=== PATIENT | male | born 1945 | race Caucasian/White ===

== ENCOUNTER 2018-07-31 19:29 | Emergency (ER) | payer OTHER ==
[~2018-07-31] VITALS: Ht 172.7 cm; Wt 72.6 kg
[~2018-07-31 19:29] MED LIST: ALBUTEROL INH IH; B-121000 MCG PO; CALCIUM PO; CARAFATE 1 GM TA1 GM PO; CARDURA1 MG; CARDURA4 MG PO; CELEXA40 MG PO; CHANTIX1 MG; CLONIDINE HCL0.2 M2 PO; DESYREL100 MG PO; DESYREL50 MG; FOLIC ACID 40400 MC1 PO; HYDROCODON-ACE1 EAC1 PO; IRON325; IRON325 PO; LEVAQUIN 500 M500 M2 PO; LEVAQUIN 750 M750 MG PO; LIBRIUM10 MG PO; LISINOPRIL40 MG PO; MAG-OX 400 TAB400 M1 PO; METAMUCIL PAC1 UDPK1 PO; METAMUCIL PAC1 UDPKT PO; MUCINEX TA600 MG/TA1 PO; MULTIVITAMINS PO; NEURONTIN 300M300 M2 PO; NORVASC 5 MG TAB5 MG PO; OCEAN45 ML OPHTHALMIC; PREDNISONE 10 M10 MG PO; PREDNISONE10 MG PO; PROTONIX 20 MG20 M1 PO; SIMVASTATIN40 MG; SPIRIVA INH; TAMSULOSIN HCL0.4 MG PO; TRAZODONE HCL100 MG PO; TUMS PO; VENTOLIN HFA INH8 GM INH; VITAMIN B-12500 MCG; VITAMIN D1000 UNI1 PO; VITAMINC500 PO; WELLBUTRIN XL150 M1
[2018-07-31] MEDS ORDERED: STIOLTO RESPIMAT4 GM (19:58)
[2018-07-31 20:26] LABS: ABSOLUTE BASOPHILS 0.1 thou/uL (0.0-0.2); ABSOLUTE EOSINOPHILS 0.1 thou/uL (0.0-0.7); ABSOLUTE LYMPHOCYTES 1.1 thou/uL (0.8-5.3); ABSOLUTE MONOCYTES 0.8 thou/uL (0.0-1.2); BASOPHILS 0.8 %; EOSINOPHILS 1.3 %; HEMOGLOBIN 12.8 gm/dL (14.0-18.0); LYMPHOCYTES 13.8 %; MCH 30.1 pg (26.0-34.0); MCHC 32.7 g/dL (28.0-37.0); MCV 92.1 fL (80.0-100.0); MONOCYTES 9.8 %; MPV 9.3 fl. (7.2-11.1); NUCLEATED RBCS 0 /100WBC; PLATELET COUNT* 203 thou/uL (150-400); POLYS 74.3 %; RBC 4.23 mil/uL (4.50-6.00); RDW-CV 12.6 % (10.5-14.5); WBC 8.1 thou/uL (4.0-11.0)
[2018-07-31 20:36] LABS: PROTIME 10.4 Seconds (9.20-11.50)
[2018-07-31 20:41] LABS: ANION GAP 3 mmol/L (7-16); BUN 7 mg/dL (7-18); CALCIUM 8.3 mg/dL (8.5-10.1); CHLORIDE 103 mmol/L (98-107); CO2 32 mmol/L (21-32); CREATININE 0.9 mg/dL (0.6-1.3); GLUCOSE 106 mg/dL (70-99); POTASSIUM 3.9 mmol/L (3.5-5.1); SODIUM 138 mmol/L (136-145)
[2018-07-31 20:46] LABS: ALBUMIN 3.2 g/dL (3.4-5.0); ALKALINE PHOSPHATASE 64 U/L (46-116); NT-PRO BRAIN NAT PEPTIDE 268 pg/mL (<300); SGOT 20 U/L (15-37); SGPT 19 U/L (30-65); TOTAL BILIRUBIN 0.4 mg/dL (<0.1-1.0); TOTAL PROTEIN 6.8 g/dL (6.4-8.2); TROPONIN-I LEVEL <0.06 ng/mL (<0.06)
[2018-07-31 22:14] LABS: URINE BILIRUBIN NEGATIVE (Negative); URINE BLOOD NEGATIVE (Negative); URINE CLARITY CLEAR; URINE COLOR YELLOW; URINE GLUCOSE-RANDOM NEGATIVE (Negative); URINE KETONES NEGATIVE (Negative); URINE LEUKOCYTES-REFLEX NEGATIVE (Negative); URINE NITRITE-REFLEX NEGATIVE (Negative); URINE PROTEIN NEGATIVE (Negative); URINE UROBILINOGEN 0.2 E.U./dl (0.2-1.0)
[2018-07-31] MEDS ORDERED: HYDROCODONE-ACE15 ML PO (23:07)
[2018-07-31] MEDS ORDERED: PREDNISONE50 MG PO (23:07)
[2018-07-31] MEDS ORDERED: ZPAK PO (23:09)
[2018-07-31 23:34] VITALS: BP 153/79
--- NOTE | 2018-08-01 12:03 | EKG ---
[place] [address] ELECTROCARDIOGRAM REPORT Name: WILLIAM LAWLER [id number] Admission: 07/31/18 Attend Phys: Discharge: 07/31/18 Date of : 43 Report #: [id number] THIS REPORT FOR: //name// [facility] ED Test Date: 2018-07-31 Test Time: 20:53:19 Pat Name: WILLIAM LAWLER Department: Room: Gender: M Patent Drafter: GABBI : 1945 Requested By: Hilaria Arredondo Order Number: [id number] MD: Efren Talley Measurements Intervals [place] Rate: 80 P: 75 CT: 112 QRS: 69 QRSD: 83 T: 59 QT: 376 QTc: 434 Interpretive Statements Sinus rhythm Atrial premature complex Borderline short CT interval Compared to ECG 05/19/2017 06:05:16 Atrial premature complex(es) now present Electronically Signed On 08-01-2018 12:03:47 CDT by Efren Talley [email or web address] <ELECTRONICALLY SIGNED> By: Efren Talley MD, [facility] 08/01/18 1203 52 52 Efren Talley MD, FACC /EPI
== END 2018-07-31 23:34 | disposition home or self-care (01) ==
LOC: M.ERS 19:29
PROVIDERS: Emergency Medicine
DX: J44.1 Chronic obstructive pulmonary disease with (acute) exacerbation (principal); I10 Essential (primary) hypertension; Z87.01 Personal history of pneumonia (recurrent); N40.0 Benign prostatic hyperplasia without lower urinary tract symptoms; Z86.73 Personal history of transient ischemic attack (TIA), and cerebral infarction without residual deficits

== ENCOUNTER → 2018-09-25 | Outpatient (CLI) | payer OTHER ==
[~2018-09-25] MED LIST changes: +HYDROCODONE-ACE15 ML PO; +PREDNISONE50 MG PO; +STIOLTO RESPIMAT4 GM; +ZPAK PO
== END ==
LOC: M.CT 12:20
DX: J43.9 Emphysema, unspecified (principal); R91.1 Solitary pulmonary nodule

== ENCOUNTER → 2019-02-04 | Outpatient (CLI) | payer OTHER | LOC: M.RAD 12-16 15:30 | DX: M81.0 Age-related osteoporosis without current pathological fracture (principal); M85.80 Other specified disorders of bone density and structure, unspecified site ==

== ENCOUNTER 2019-03-02 13:46 | Inpatient (IN) | payer OTHER ==
[~2019-03-02] VITALS: Ht 172.7 cm; Wt 76.2 kg
[~2019-03-02 13:46] MED LIST changes: +OCEAN104 ML NS; -OCEAN45 ML OPHTHALMIC
[2019-03-02 13:50] VITALS: BP 169/91
[2019-03-02] MEDS ORDERED: TRELEGY ELLIPT1 EACH INH (13:57)
[2019-03-02] MEDS ORDERED: CO Q-10100 MG PO (13:58)
[2019-03-02] MEDS ORDERED: SIMVASTATIN40 MG PO (13:58)
[2019-03-02] MEDS ORDERED: ALBUTEROL2.5 MG/31 INH (13:59)
[2019-03-02] MEDS ORDERED: NORCO 5-325 TA1 EACH PO (13:59)
[2019-03-02 14:21] LABS: HEMATOCRIT 40.8 % (42.0-52.0); HEMOGLOBIN 13.3 gm/dL (14.0-18.0); MCH 29.5 pg (26.0-34.0); MCHC 32.6 g/dL (28.0-37.0); MCV 90.6 fL (80.0-100.0); MPV 9.5 fl. (7.2-11.1); NUCLEATED RBCS 0 /100WBC; PLATELET COUNT* 182 thou/uL (150-400); RDW-CV 14.2 % (10.5-14.5); WBC 17.8 thou/uL (4.0-11.0)
[2019-03-02 14:30] LABS: ANION GAP 9 mmol/L (7-16); APTT 28.9 Seconds (25.0-31.3); BUN 13 mg/dL (7-18); CALCIUM 8.4 mg/dL (8.5-10.1); CHLORIDE 101 mmol/L (98-107); CO2 30 mmol/L (21-32); CREATININE 0.9 mg/dL (0.6-1.3); GLUCOSE 118 mg/dL (70-99); POTASSIUM 4.2 mmol/L (3.5-5.1); PROTIME 10.6 Seconds (9.20-11.50); SODIUM 140 mmol/L (136-145)
[2019-03-02 14:47] LABS: ALBUMIN 3.1 g/dL (3.4-5.0); ALKALINE PHOSPHATASE 72 U/L (46-116); LIPASE 65 U/L (73-393); NT-PRO BRAIN NAT PEPTIDE 480 pg/mL (<300); SGOT 18 U/L (15-37); SGPT 22 U/L (30-65); TOTAL BILIRUBIN 0.6 mg/dL (<0.1-1.0); TROPONIN-I LEVEL <0.06 ng/mL (<0.06)
[2019-03-02 14:48] LABS: ABSOLUTE LYMPHOCYTES 1.1 thou/uL (0.8-5.3); ABSOLUTE MONOCYTES 1.4 thou/uL (0.0-1.2); ABSOLUTE NEUTROPHILS 15.3 thou/uL (1.6-8.1); ATYPICAL LYMPHS 2 %; PLATELET ESTIMATE ADEQUATE
--- NOTE | 2019-03-02 17:12 | EKG ---
[place] [address] ELECTROCARDIOGRAM REPORT Name: WILLIAM LAWLER Room: [place] [address] ADM IN R.#: [id number] Admission: 03/02/19 Attend Phys: Doris Zavala MD Discharge: Date of : 43 Report #: [id number] THIS REPORT FOR: //name// ED Test Date: 2019-03-02 Test Time: 14:28:18 Pat Name: WILLIAM LAWLER Department: Room: [facility] Gender: M Manager Call: : 1945 Requested By: Keshawn Miranda Order Number: [id number] MD: Dane Herbert Measurements Intervals [place] Rate: 97 P: 60 AL: 121 QRS: 83 QRSD: 81 T: 63 QT: 331 QTc: 421 Interpretive Statements Sinus rhythm Borderline right axis deviation Compared to ECG 07/31/2018 20:53:19 Atrial premature complex(es) no longer present Electronically Signed On 03-02-2019 17:11:49 CDT by Dane Herbert [email or web address] <ELECTRONICALLY SIGNED> By: Dane Herbert MD, [facility] 03/02/19 1711 1428 1428 Dane Herbert MD, [facility] /EPI
[2019-03-02 22:20] VITALS: BP 133/63
[2019-03-02 22:35] VITALS: BP 172/79
[2019-03-03 04:00] VITALS: BP 120/66
--- NOTE | 2019-03-03 05:13 | NUR ---
PATIENT ARRIVED ON UNIT AT APPROX 2235. SENIOR INVESTIGATOR ASSESSMENT COMPLETED DOCUMENTED. REMAINS ON 02 AT 2L VIA NC. NO COMLAINTS OF PAIN OR DISCOMFORT VERBALIZED. NSR ON HEART MONITOR. MEDICATIONS GIVEN PER E-NOV. HOURLY ROUNDING COMPLETED DOCUMENTED.
[2019-03-03 05:30] LABS: ABSOLUTE LYMPHOCYTES 0.4 thou/uL (0.8-5.3); ABSOLUTE MONOCYTES 0.3 thou/uL (0.0-1.2); BASOPHILS 0.1 %; CALCIUM 8.1 mg/dL (8.5-10.1); CREATININE 0.9 mg/dL (0.6-1.3); HEMATOCRIT 36.8 % (42.0-52.0); HEMOGLOBIN 12.1 gm/dL (14.0-18.0); LYMPHOCYTES 5.5 %; MCH 30.2 pg (26.0-34.0); MCV 91.7 fL (80.0-100.0); MONOCYTES 3.6 %; MPV 10.1 fl. (7.2-11.1); NUCLEATED RBCS 0 /100WBC; PLATELET COUNT* 163 thou/uL (150-400); POLYS 90.8 %; POTASSIUM 4.1 mmol/L (3.5-5.1); RBC 4.01 mil/uL (4.50-6.00); RDW-CV 14.4 % (10.5-14.5); WBC 7.7 thou/uL (4.0-11.0)
--- NOTE | 2019-03-03 07:15 | NUR ---
CHNAGE OF SHIFT BEDSIDE REPORT GIVEN PATIENT SEEN AT BEDSIDE, IN BED RESTING AND WATCHING TV ASSUMED PATIENT CARE
[2019-03-03 08:00] VITALS: BP 141/65
[2019-03-03 11:26] VITALS: BP 127/59
--- NOTE | 2019-03-03 12:58 | EKG ---
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 03/03/19 1258 6 Joe Arevalo MD, [facility] /EPI
[2019-03-03 15:39] VITALS: BP 141/64
--- NOTE | 2019-03-03 15:52 | NUR ---
Pt is A&O. Resides at home with his son and family. Independent with ADLs. Family does the cooking, cleaning and driving. Pt wears home o2 continuous, provided through [employer]. Pt has a RW for mobility, a shower chair, neb, grab bars and a stair lift. Hx of HH. No hx of SNF. Goal is home at [place], no needs anticipated. Per Pt, he is scheduled to have a lung biopsy tomorrow.
[2019-03-03 20:00] VITALS: BP 116/59
[2019-03-04] VITALS: BP 100/66
[2019-03-04 03:44] VITALS: BP 150/72
--- NOTE | 2019-03-04 05:12 | NUR ---
ASSUMED PATIENT CARE AT 1900. PATIENT ALERT AND ORIENTE TIMES FOUR. ANXIETY VOICED OVER PROCEDURE BEING DONE TODAY AND WHEN THE RESULTS WILL BE IN. WOULD LIKE TO SPEAK TO CASE MANAGEMENT ABOUT ADVANCED DIRECTIVES. NO COMPLAINTS OF PAIN OR DISCOMFORT NOTED. PIN ATTACHER AND HOURLY ROUNDING COMLETED DOCUMENTED.
--- NOTE | 2019-03-04 07:20 | NUR ---
CHANGE OF SHIFT BEDSIDE REPORT GIVEN PATIENT SEEN AT BEDSDIE, IN BED WATCHING TV ASSUMED PATIENT CARE
[2019-03-04 08:00] VITALS: BP 158/73
--- NOTE | 2019-03-04 10:39 | CON ---
[address] [address] CONSULTATION Name: WILLIAM LAWLER Room: [address] IN .R.#: [id number] Admission: 03/02/19 Attend Phys: Doris Zavala MD Discharge: Date of : 43 Report #: [id number] THIS REPORT FOR: //name// CC: Doris Damian REFERRING PHYSICIAN: Doris Zavala M.D. REASON FOR CONSULTATION: Lung mass. HISTORY OF PRESENT ILLNESS: This is a 73-year-old male patient with history of COPD, chronic respiratory failure, on home oxygen. His last spirometry back in May 2017 in our office, his FEV1 was 0.6 liters. He is an ex-smoker. He presented to the hospital with left-sided shoulder pain and chest pain that started 2 weeks' duration, getting worse, associated with worsening with cough and deep breath. Also, he noted that his breathing actually is getting worse too. His workup included a chest x-ray, followed by CT scan that demonstrated left upper lobe 3.5 x 1.7 cm spiculated lesion. Also compared to the previous CT scan going back to 2018, this lesion actually is larger. There is a new area of infiltrate in the left upper lobe and the new area of infiltrate in the left lower lobe. The patient has no wheezes. The patient does not think he has extra wheezes. He feels weak in general and tired. He had no fever and no sick contact. He denied any headache or blurring of vision. He denied any sore throat or nasal discharge. He denied any sputum production. He is not sure if he lost any weight. ALLERGIES: No known drug allergies. HOME MEDICATIONS: He is on albuterol, Stiolto, oxygen, Ventolin, doxazosin, Flonase, gabapentin, Protonix, lisinopril, trazodone and vitamin supplements in addition to oxygen. PAST SURGICAL HISTORY: Colonoscopy. FAMILY HISTORY: Reviewed with the patient, positive for hypertension, heart disease and cancer. SOCIAL HISTORY: He is an ex-smoker, smoked for almost 30 years, up to 2 packs per day, does not drink alcohol excessively, does not abuse drugs and by the way, he quit smoking. REVIEW OF SYSTEMS: CONSTITUTIONAL: He denied fever. He had some weight loss, looks thin. He has some weakness and fatigue. EYES: No vision changes. No cataracts. No redness. No lacrimation. EAR, NOSE AND THROAT: He had no tinnitus, no epistaxis, no postnasal drip, no sinus pain. No difficulty swallowing. No cough with meals. [place] [address] CONSULTATION Name: WILLIAM LAWLER Room: [address]#: [id number] Admission: 03/02/19 Attend Phys: Doris Zavala MD Discharge: Date of : 43 Report #: [id number] HEART: He had some discomfort in his chest as mentioned above, but he had no edema. No cold extremities. RESPIRATORY: As above. GASTROINTESTINAL: He has no nausea, no vomiting and no bleeding from any orifice. No change in bowel habits. No indigestion. GENITOURINARY: He denied frequency, urgency or incontinence. MUSCULOSKELETAL: He denied any joint pain, stiffness, back pain, except what is mentioned above in the left side of his shoulder. SKIN: He denied any rashes or skin lesions or hair loss. NEUROLOGICAL: Awake, alert and oriented. He reported some memory problem. He had no headache. No blurring of vision. PSYCHIATRIC: He looks in good mood. He denied any depression. HEMATOLOGIC: He denied any bruising, any bleeding problem. All systems reviewed with the patient and negative other than as mentioned above. PHYSICAL EXAMINATION: VITAL SIGNS: He was on 2 liters oxygen with saturation around 93%, blood pressure 127/59, pulse rate of 92 and temperature is 36.5. GENERAL: Thin gentleman who looks chronically ill. HEENT: Head normocephalic and atraumatic. Pupils reactive to light. Not pale or jaundiced. External ear looks normal. ORAL CAVITY: Moist mucous membrane. Mallampati of 2. NECK: No lymphadenopathy. Trachea is central. CHEST: Diminished air movement bilaterally with prolonged expiratory phase and end expiratory wheeze. There is some tenderness over the scapula on the left side. HEART: S1 and S2. No murmur. ABDOMEN: Benign, soft, lax, nontender with positive bowel sounds. EXTREMITIES: Lower extremity: No edema. No calf tenderness. LYMPHATICS: No palpable lymph nodes. PSYCHIATRIC: Mood and affect appropriate, slightly anxious. RADIOLOGICAL DATA: His chest x-ray that was done in the ER showed hyperinflation, area of scarring in the left lung and healed fracture on the right ribs. CT scan of the chest was done and reviewed as mentioned above, the areas of lesion. The left upper lobe lesion showed enlarging spiculated nodule. IMPRESSION: 1. Pulmonary nodules. 2. Pulmonary infiltrate. 3. Chronic obstructive pulmonary disease exacerbation. 4. [place] [address] CONSULTATION Name: WILLIAM LAWLER Room: [address]#: [id number] Admission: 03/02/19 Attend Phys: Doris Zavala MD Discharge: Date of : 43 Report #: [id number]. Shoulder pain and rib pain. The patient's clinical picture where the pain is really, unable to explain based on the CT scan. No bone lesion seen on the CT scan, could be musculoskeletal and also could be pleuritic pain. I believe the patient has mild chronic obstructive pulmonary disease exacerbation at this point. We will treat his chronic obstructive pulmonary disease exacerbation with steroids and antibiotics. Scheduled nebulization treatment. Regarding the lung mass, the new area in the left upper lobe at the apex looks , which could be infiltrative process, pneumonia, so we will treat him as pneumonia with antibiotics; however, the other lesion at the level of the hilum is concerning for malignancy and this was explained to the patient. Actually, the patient put his son on the phone. I did discuss with them the finding and the concern for malignancy and the need for biopsy if they want to pursue further workup. I did discuss the case with Radiology. They believe it is approachable by CT-guided biopsy. I had a long discussion with the patient and his son that he is at higher risk than average for periprocedure complications and pulmonary complications including worsening respiratory status, pneumothorax that might require chest tube. The patient told me he would like to think about it. He is not sure if he will agree for chemotherapy down the road. At this point, he will discuss with his son further and the rest of the family and they will let us know if they agree, we can proceed with a CT-guided biopsy. Meanwhile, I would keep the patient off anticoagulation till he decides. Thank you for the consult. <ELECTRONICALLY SIGNED> By: Keri Mcqueen MD 03/04/19 1039 1203 0046Keri Mcqueen MD /nt
[2019-03-04 12:00] VITALS: BP 158/75
--- NOTE | 2019-03-04 14:00 | NUR ---
PATIENT HERE FOR LUNG BIOPSY. ALERT AND ORIENTED X 4 AND CONSENT SIGN. TIME OUT COMPLETED AND ALL PARTIES AGREE ON PROCEDURE. pATIENT GIVEN VERSED 2MG AND FENTANYL 50 MCG.
--- NOTE | 2019-03-04 14:05 | NUR ---
PATIENT COMFORTABLE. FENTANYL 25 MCG GIVEN
--- NOTE | 2019-03-04 14:12 | NUR ---
PHYSICIAN REVIEWING FILMS FOR NEEDLE PLACEMENT
[2019-03-04 16:00] VITALS: BP 124/66
[2019-03-04 20:00] VITALS: BP 150/77
[2019-03-05] VITALS: BP 158/89
[2019-03-05 03:50] VITALS: BP 162/78
[2019-03-05 04:48] LABS: ABSOLUTE LYMPHOCYTES 0.3 thou/uL (0.8-5.3); ABSOLUTE MONOCYTES 0.5 thou/uL (0.0-1.2); ABSOLUTE NEUTROPHILS 9.5 thou/uL (1.6-8.1); BASOPHILS 0.1 %; HEMATOCRIT 36.2 % (42.0-52.0); HEMOGLOBIN 11.6 gm/dL (14.0-18.0); LYMPHOCYTES 3.2 %; MCH 29.5 pg (26.0-34.0); MCHC 32.1 g/dL (28.0-37.0); MCV 91.9 fL (80.0-100.0); MONOCYTES 4.8 %; NUCLEATED RBCS 0 /100WBC; PLATELET COUNT* 199 thou/uL (150-400); POLYS 91.9 %; RBC 3.94 mil/uL (4.50-6.00); RDW-CV 14.3 % (10.5-14.5); WBC 10.3 thou/uL (4.0-11.0)
--- NOTE | 2019-03-05 04:49 | NUR ---
ASSUMED PT CARE AT APPROX 1930. PT IS AWAKE AND ORIENTED X4. VSS ON 2L/NC. EXECUTIVE PERSONAL ASSISTANT IN PLACE TRACING SR w/ PACs. PT DENIES PAIN ON BIOPSY SITE, DENIES SOA. PT IS ABLE TO SLEEP MOST OF THE NIGHT. CALL LIGHT WITHIN REACH. HOURLY ROUNDING DONE FPOR PT SAFETY.
[2019-03-05 05:08] LABS: CREATININE 0.8 mg/dL (0.6-1.3); POTASSIUM 4.4 mmol/L (3.5-5.1)
[2019-03-05 09:00] VITALS: BP 76/52
--- NOTE | 2019-03-05 11:26 | NUR ---
ASSUMED PT CARE AT 0700 PT IS ALERT AND ORIENTED X 4 PT DENIES PAIN OR SOA ON 2L/NC, PT BLOOD PRESSURE LOW PT STATES HAS LIGHTHEADNESS HELD BLOOD PRESSURE MEDS AND WINIFRED PHYSCIAN WHO HAD THIS NURSE RECHECK BLOOD PRESSURE WHICH WAS WITHIN RANGE NO NEW ORDERS GIVEN, PT IS NPO FOR CTA CHEST, PT IS UP WITH SBA PT IS NOT A FALL RISK, WILL CONTINUE TO MONITOR
[2019-03-05 20:00] VITALS: BP 141/61
[2019-03-06] VITALS: BP 140/52
[2019-03-06 04:03] VITALS: BP 142/46
--- NOTE | 2019-03-06 05:16 | NUR ---
ASSUMED PATIENT CARE AT 1900. PATIENT ALERT AND ORIENTED TIMES FOUR. NO COMPLAINTS OF PAIN OR DISCOMFORT NOTED. VERY WORRIED ABOUT WHAT TREATMENT OPTIONS ARE AVAILABLE FOR HIS DIAGNOSIS. SHIP CONSTRUCTION TEACHER AND HOURLY ROUNDING COMPLETED CHARTED.
[2019-03-06 08:00] VITALS: BP 120/75
--- NOTE | 2019-03-06 10:07 | NUR ---
ASSUMED PT CARE AT 0700 PT IS ALERT AND ORIENTED X 4 PT DENIES PAIN OR SOA ON 2L/NC, PT IS ALERT AND ORIENTED X 4 PT IS UP SBA PT IS NOT A FALL RISK, PT IS SR PAC ON THE MONITOR, PT VOICED CONCERNS REGARDING POSSIBLE DISCHARGE PT STATES HE FEELS WEAKNESS THIS NURSE PAGED PHYSICIAN REGARDING PHYSICIAL THERAPY EVAULUATION AWAITING CALL BACK WILL CONTINUE TO MONITOR
[2019-03-06 11:33] VITALS: BP 144/59
--- NOTE | 2019-03-06 15:05 | PATH ---
[address] [address] PATHOLOGY RPT PROCEDURE Name: WILLIAM FRANCE Room: [address] IN .R.#: [id number] Admission: 03/02/19 Date of : 43 Discharge: Report #: [id number] Path Case #: [id number] [facility] Accession Number: [id number] . 01 Material submitted: . lung - LEFT LUNG CORE BIOPSY. Modifiers: left . 01 Clinical history: . Three lung nodules, Lung nodule this one looks like CA. Do not suspect infection Left lung mass . . 02 Diagnosis: Left lung mass, image guided core biopsy: - POORLY DIFFERENTIATED BRONCHOGENIC ADENOCARCINOMA INVOLVING LUNG PARENCHYMA. SEE COMMENT. (ALYCE:pit 03/06/2019) QTP/03/06/2019 . 02 Comment: Multiple cores show lung parenchyma with infiltrating nests of poorly differentiated carcinoma and in one fragment it is seen to invade into the muscle of a small blood vessel wall. The foci of neoplasm appear to be predominantly acinar type. Scattered foci of chronic inflammatory cells are present. A panel of properly controlled immunohistochemical stains performed on A1 show the following results, supporting the classification: . P40: Negative Napsin: Positive TTF-1: Positive . Reviewed with Dr. Maxi Conley who agrees with the diagnosis. Dr. Lau notified of preliminary findings at approximately 10:50 on 03/05/2019. (ALYCE:[facility] 03/06/2019) . 02 Electronically signed: . Tony Phillips MD, Pathologist NPI- [id number] . 01 Gross description: . Received in formalin labeled "William France," and additionally labeled on the requisition as "left lung, core biopsy," are multiple fragments of needle cores of see soft tissue measuring 0.6 x 0.3 x 0.1 cm in aggregate dimensions. The specimen is filtered and entirely submitted in cassette A1. (TSD; 03/04/2019) TOB/[place] [address] PATHOLOGY RPT PROCEDURE Name: WILLIAM FRANCE Room: [address] IN [facility]#: [id number] Admission: 03/02/19 Date of : 43 Discharge: Report #: [id number] Path Case #: [id number] . 02 Pathologist provided ICD-10: C34.92 . 02 CPT . 119694, E84215, E34742 Specimen Comment: A courtesy copy of this report has been sent to Specimen Comment: [phone], , . Specimen Comment: Report sent to ,DR LAU / DR QUACH Performed at: [address], [place], [place] [id number] MD Anuel Simpson MD Phone: [phone] Performed at: 02 [facility] [address], [place], [place] [id number] MD Tony Phillips MD Phone: [phone]
[2019-03-06 15:33] VITALS: BP 147/75
--- NOTE | 2019-03-06 17:27 | NUR ---
PT CARE ASSUMED THIS AFTERNOON. SINUS ARRHYTHMIA ON MONITOR. A/O X4. DENIES PAIN. PROGRESSING TOWARDS GOALS.
[2019-03-06 20:00] VITALS: BP 148/69
[2019-03-07] VITALS: BP 152/94
[2019-03-07 04:00] VITALS: BP 120/63
[2019-03-07 05:00] LABS: HEMATOCRIT 36.9 % (42.0-52.0); HEMOGLOBIN 12.2 gm/dL (14.0-18.0); MCH 30.2 pg (26.0-34.0); MCHC 33.2 g/dL (28.0-37.0); MCV 91.2 fL (80.0-100.0); MPV 9.8 fl. (7.2-11.1); NUCLEATED RBCS 0 /100WBC; PLATELET COUNT* 210 thou/uL (150-400); RBC 4.05 mil/uL (4.50-6.00); RDW-CV 14.3 % (10.5-14.5); WBC 8.2 thou/uL (4.0-11.0)
[2019-03-07 05:07] LABS: CREATININE 0.9 mg/dL (0.6-1.3); POTASSIUM 4.5 mmol/L (3.5-5.1)
--- NOTE | 2019-03-07 05:30 | NUR ---
ASSUMED PATIENT CARE AT 1900. PATIENT ALERT AND ORIENTED TIMES FOUR. STATES THAT HE FEELS MUCH BETTER THIS AM. VOICE NOTED BY RN TO SOUND STRONGER. NURSE SCHOOL AND HOURLY ROUNDING COMPLETED DOCUMENTED.
[2019-03-07 05:31] LABS: ABSOLUTE LYMPHOCYTES 0.3 thou/uL (0.8-5.3); ABSOLUTE MONOCYTES 0.1 thou/uL (0.0-1.2); ABSOLUTE NEUTROPHILS 7.8 thou/uL (1.6-8.1); PLATELET ESTIMATE ADEQUATE
[2019-03-07 12:00] VITALS: BP 132/65
[2019-03-07] MEDS ORDERED: CEFDINIR300 MG PO (13:58)
[2019-03-07] MEDS ORDERED: SENNA PLUS TAB1 EACH PO (13:59)
[2019-03-07] MEDS ORDERED: PREDNISONE 10 M10 MG PO (13:59)
[2019-03-07] MEDS ORDERED: PEPCID20 MG PO (14:00)
--- NOTE | 2019-03-07 14:43 | NUR ---
ORDER RECEIVED FOR "OT EVALUATION AND TREATMENT". PT AND RN STATING THAT PATIENT IS TO DISCHARGE AT 1600. WILL D/C FROM OT CASELOAD AT THIS TIME.
[2019-03-07 15:28] VITALS: BP 132/65
--- NOTE | 2019-03-07 17:25 | NUR ---
PT VSS THIS SHIFT, TOLERATING 2L PER NC IS PT BASELINE USE AT HOME. PT TOLERATING PAIN WITH PAIN MEDICATIONS ORDERED AT THIS TIME. PT TOLERATING DIET AND IS RUNNING SR WITH PAC'S ON THE MONITOR. PT IV REMOVED INTACT AND 4 RX PROVIDED TO PT. HOURLY ROUNDING MAINTAINED THIS SHIFT. PT VERBALIZED UNDERSTANDING TO DC INSTRUCTIONS AND MEDICATIONS. WILL SIGN OFF AT THIS TIME.
== END 2019-03-07 17:29 | disposition home or self-care (01) | DRG 180 ==
LOC: M.ERS 13:46 → M.TBA-ER 16:16 → M.2W 16:16
PROVIDERS: Family Medicine; ADMIT Family Medicine
PROC: 0BBL3ZX Excision of Left Lung, Percutaneous Approach, Diagnostic (ICD-10-PCS; principal; 2019-03-04)
DX: C34.90 Malignant neoplasm of unspecified part of unspecified bronchus or lung (principal); J96.21 Acute and chronic respiratory failure with hypoxia; C79.51 Secondary malignant neoplasm of bone; R65.10 Systemic inflammatory response syndrome (SIRS) of non-infectious origin without acute organ dysfunction; J44.1 Chronic obstructive pulmonary disease with (acute) exacerbation; J44.0 Chronic obstructive pulmonary disease with (acute) lower respiratory infection; N40.0 Benign prostatic hyperplasia without lower urinary tract symptoms; G62.9 Polyneuropathy, unspecified; Z74.09 Other reduced mobility; R91.1 Solitary pulmonary nodule; Z79.51 Long term (current) use of inhaled steroids; Z87.891 Personal history of nicotine dependence; Z86.73 Personal history of transient ischemic attack (TIA), and cerebral infarction without residual deficits; Z79.899 Other long term (current) drug therapy

== ENCOUNTER → 2019-04-08 | Outpatient (CLI) | payer OTHER ==
[~2019-04-08] MED LIST changes: +ALBUTEROL2.5 MG/31 INH; +CEFDINIR300 MG PO; +CO Q-10100 MG PO; +NORCO 5-325 TA1 EACH PO; +PEPCID20 MG PO; +SENNA PLUS TAB1 EACH PO; +SIMVASTATIN40 MG PO; +TRELEGY ELLIPT1 EACH INH
--- NOTE | 2019-04-21 08:26 | PF ---
[address] [address] PULMONARY FUNCTION REPORT Name: WILLIAM LAWLER Room: [facility]#: [id number] Admission: 04/08/19 Attend Phys: Dewey Kirk MD Discharge: Date of : 43 Report #: [id number] THIS REPORT FOR: //name// CC: Dewey Damian MD DATE OF SERVICE: 04/08/2019 ATTENDING PHYSICIANS: Quique Damian MD and Anderson Kirk MD FINDINGS: Spirometry demonstrates severe obstructive defect. Minimal improvement after single dose of inhaled bronchodilator is noted. Postbronchodilator studies reveal an FEV1 of 0.77, FVC of 2.9, ratio is 26%. No significant bronchodilator response was noted after inhaler. FEV1 is 27% of predicted, making him a gold level 4. Lung volumes performed by plethysmography show RV to TLC increased 156% predicted with decreased diffusion at 36% adjusted. DLCO for alveolar volume was lower limits of normal. 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 Decreased diffusion is noted. Hyperinflation is noted. <ELECTRONICALLY SIGNED> By: Angel Cheng MD 04/21/19 0826 1214 2220Angel Cheng MD /nt
== END ==
LOC: M.PUL 10:30
DX: C34.82 Malignant neoplasm of overlapping sites of left bronchus and lung (principal); J43.9 Emphysema, unspecified

== ENCOUNTER 2019-08-11 14:50 | Inpatient (IN) | payer OTHER ==
[~2019-08-11] VITALS: Ht 172.7 cm; Wt 73.0 kg
[~2019-08-11 14:50] MED LIST changes: -VITAMIN D1000 UNI1 PO; +Vitamin D 1000 UNIT PO
[2019-08-11 15:04] VITALS: BP 175/83
[2019-08-11 15:18] LABS: ABSOLUTE BASOPHILS 0.1 thou/uL (0.0-0.2); ABSOLUTE EOSINOPHILS 0.2 thou/uL (0.0-0.7); ABSOLUTE LYMPHOCYTES 0.7 thou/uL (0.8-5.3); ABSOLUTE MONOCYTES 0.8 thou/uL (0.0-1.2); ABSOLUTE NEUTROPHILS 6.5 thou/uL (1.6-8.1); BASOPHILS 1.3 %; EOSINOPHILS 2.6 %; HEMOGLOBIN 14.5 gm/dL (14.0-18.0); LYMPHOCYTES 7.9 %; MCH 31.1 pg (26.0-34.0); MCHC 33.7 g/dL (28.0-37.0); MCV 92.3 fL (80.0-100.0); MONOCYTES 10.2 %; MPV 8.3 fl. (7.2-11.1); NUCLEATED RBCS 0 /100WBC; PLATELET COUNT* 176 thou/uL (150-400); RBC 4.66 mil/uL (4.50-6.00); RDW-CV 13.6 % (10.5-14.5); WBC 8.3 thou/uL (4.0-11.0)
[2019-08-11 15:29] LABS: CALCIUM 8.7 mg/dL (8.5-10.1); POTASSIUM 4.1 mmol/L (3.5-5.1)
[2019-08-11 15:32] LABS: APTT 25.7 Seconds (25.0-31.3)
[2019-08-11 15:43] LABS: ALBUMIN 3.3 g/dL (3.4-5.0); CK-MB MASS 3.2 ng/mL (<0.5-3.6); MAGNESIUM 1.7 mg/dL (1.8-2.4); TOTAL BILIRUBIN 0.4 mg/dL (<0.1-1.0); TOTAL PROTEIN 6.8 g/dL (6.4-8.2)
--- NOTE | 2019-08-11 16:16 | EKG ---
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 : 1945 Requested By: Keshawn Miranda Order Number: [id number] MD: Efren Talley Measurements Intervals [place] Rate: 95 P: 84 WV: 124 QRS: 97 QRSD: 85 T: 66 QT: 326 QTc: 410 Interpretive Statements Sinus rhythm Supraventricular bigeminy Right axis deviation Baseline wander in lead(s) II,III,aVF,V1 Compared to ECG 03/03/2019 08:37:57 no change Electronically Signed On 08-11-2019 16:15:45 HAT STEAMER by Efren Talley [email or web address] <ELECTRONICALLY SIGNED> By: Efren Talley MD, [facility] 08/11/19 1615 1458 1458 Efren Talley MD, [facility] /EPI
--- NOTE | 2019-08-11 17:29 | NUR ---
CTA CHEST COMPLEATED PATIENT RETURNED TO ED
[2019-08-11 18:30] VITALS: BP 134/48
[2019-08-11 18:45] VITALS: BP 95/39
--- NOTE | 2019-08-11 19:07 | NUR ---
RECEIVED PT FROM ER AT 1830. GET SITUATED TO ROOM. AOX4, UP SBA, O2 SAT 90'S 3L NC. TRACING SR ON TELE. COMPLAINS OF CHEST PAIN. RECONCILED MEDS. VSS, GIVE REPORT TO NIGHT NURSE.
[2019-08-11 20:06] VITALS: BP 111/67
[2019-08-12] VITALS (8 sets, daily range): BP systolic 107–227; BP diastolic 64–144
--- NOTE | 2019-08-12 03:51 | NUR ---
ASSUMED CARE OF PT AT 1900. PT IS ALERT AND ORIENTED. VSS. PERRLA. PT IS ON 3 LITER O2. PT IS IN SINUS RYTHM ON THE TELEMETRY. PT IS RESTING COMFORTABLY INBED. RESPIRATIONS ARE EVEN AND NONLABORED. WILL CONTINUE TO MONITOR PT.
--- NOTE | 2019-08-12 09:07 | NUR ---
ASSUMED CARE OF PT THIS AM AROUND 0715- SALES EXPERT HOME THEATER IN PLACE ORDERED, TRACING SR- UPON ASSESSMENT PT NOTED TO BE RESTING IN BED- PT A&O X4- CONTINENT OF BOWEL AND BLADDER- SBA WITH TRANSFERS FOR SAFETY- DIMINISHED LUNG SOUNDS NOTED, RESP EVEN AND UN-LABORED- VSS, O2 SAT 91% ON 2L VIA NC- ABD SOFT/FLAT/NON-TENDER, BS X4 QUADS- LAST BM REPORTED 08/11/19- GOOD PO INTAKE NOTED THIS AM WITH BREAKFAST- IV NOTED TO RIGHT FA AND LEFT AC INTACT ANS SL, IVF INFUSSING PRESCRIBED- CALL LIGHT AND PERSONAL BELONGINGS WITH IN REACH- HOURLY ROUNDS IN PLACE R/T SAFETY/NEEDS- ALL NEEDS MET AT THIS TIME-WCTM
--- NOTE | 2019-08-12 11:40 | NUR ---
Pt is A&O. Resides at home with his son and DIL. Pt independent with ADLs. Independent with IADLs. Pt wears home o2 contiuous at 2L provided through [employer]. Pt also has a neb, stair lift, and RW. Hx of [facility] HH. No hx of SNF. Goal is home at dc, no needs anticipated.
--- NOTE | 2019-08-12 16:07 | NUR ---
REPORT RECEIVED FROM MARIAN VERA. THIS RN AGREES WITH PREVIOUS PRODUCTION PROOFREADER. CARDIOLOGY AND PULMONARY CONSULTS IN PLACE. DR MCKEON SEEN PT- NO NEW ORDERS RECEIVED AT THIS TIME. AWAITING PULM TO SEE PT. MEDICATIONS PER NOV. PT REPOSITIONS SELF WITH REMINDERS. HOURLY ROUNDING OBSERVED. BED IN LOW POSITION. CALL LIGHT WITHIN REACH. WILL CONTINUE PLAN OF CARE.
--- NOTE | 2019-08-12 16:57 | 2DMMODE ---
[place] [address] 2 D/M-MODE ECHOCARDIOGRAM Name: WILLIAM LAWLER Room: [address] ADM IN [facility]#: [id number] Admission: 08/11/19 Attend Phys: Jesu Alfredo Discharge: Date of : 43 Date of Service: 08/12/19 1657 Report #: [id number] THIS REPORT FOR: //name// APPROVED REPORT Study performed: 08/12/2019 13:31:22 EXAM: Comprehensive 2D, Doppler, and color-flow Echocardiogram Patient Location: In-Patient Room #: 221 Status: routine BSA: 1.75 HR: 90 bpm BP: 107/80 mmHg Rhythm: NSR Other Information Study Quality: Excellent Indications Chest Pain 2D Dimensions IVSd: 11.58 (7-11mm) LVOT Diam: 19.20 (18-24mm) LVDd: 42.71 mm PWd: 9.32 (7-11mm) Ascending Ao: 27.11 (22-36mm) LVDs: 25.89 (25-40mm) Aortic Root: 32.34 mm Volumes Left Atrial Volume (Systole) LA ESV Index: 22.40 mL/m2 Aortic Valve AoV Peak Moo.: 1.91 m/s AO Peak Gr.: 14.54 mmHg LVOT Max P.61 mmHg AO Mean Gr.: 7.67 mmHg LVOT Mean P.25 mmHg LVOT Max V: 1.55 m/s AO V2 VTI: 34.13 cm LVOT Mean V: 0.94 m/s LETICIA (VTI): 2.44 cm2 LVOT V1 VTI: 28.75 cm Mitral Valve E/A Ratio: 0.73 MV Decel. Time: 207.19 ms MV E Max Moo.: 0.83 m/[place] [address] 2 D/M-MODE ECHOCARDIOGRAM Name: WILLIAM LAWLER Room: [address] IN ..#: [id number] Admission: 08/11/19 Attend Phys: Jesu Alfredo Discharge: Date of : 43 Date of Service: 08/12/19 1657 Report #: [id number] MV PHT: 60.09 ms MVA (PHT): 3.66 cm2 TDI E/Lateral E': 7.55 E/Medial E': 8.30 Medial E' Moo.: 0.10 m/s Lateral E' Moo.: 0.11 m/s Pulmonary Valve PV Peak Moo.: 1.14 m/s PV Peak Gr.: 5.20 mmHg Tricuspid Valve RAP Estimate: 5.00 mmHg TR Peak Gr.: 35.43 mmHg RVSP: 40.00 mmHg PA Pressure: 40.00 mmHg Left Ventricle The left ventricle is normal size. There is normal LV segmental wall motion. There is normal left ventricular wall thickness. Left ventricular systolic function is normal. The left ventricular ejection fraction is within the normal range. LVEF is 65-70%. Grade I - abnormal relaxation pattern. Right Ventricle The right ventricle is normal size. The right ventricular systolic function is normal. Atria The left atrium size is normal. The right atrium size is normal. Aortic Valve The aortic valve is normal in structure. No aortic regurgitation is present. There is no aortic valvular stenosis. Mitral Valve The mitral valve is normal in structure. mild mitral valve regurgitation noted. No evidence of mitral valve stenosis. Tricuspid Valve The tricuspid valve is normal in structure. Trace tricuspid regurgitation. estimated pa pressure 50 mm Hg Pulmonic Valve The pulmonary valve is normal in structure. [place] [address] 2 D/M-MODE ECHOCARDIOGRAM Name: WILLIAM LAWLER Room: [address] IN [facility]#: [id number] Admission: 08/11/19 Attend Phys: Jesu Alfredo Discharge: Date of : 43 Date of Service: 08/12/19 1657 Report #: [id number] Great Vessels The aortic root is normal in size. IVC is normal in size and collapses >50% with inspiration. Pericardium There is no pericardial effusion. <Conclusion> LVEF is 65-70%. Trace tricuspid regurgitation. estimated pa pressure 50 mm Hg <ELECTRONICALLY SIGNED> By: Efren Talley MD, FACC 08/12/191656 56 56 Efren Talley MD, FACC /INF
[2019-08-12 20:47] LABS: pH 7.276 (7.340-7.450)
[2019-08-12 21:08] LABS: HEMATOCRIT 41.7 % (42.0-52.0); HEMOGLOBIN 13.9 gm/dL (14.0-18.0); MCHC 33.4 g/dL (28.0-37.0); MCV 92.7 fL (80.0-100.0); MPV 8.5 fl. (7.2-11.1); RBC 4.49 mil/uL (4.50-6.00); RDW-CV 13.4 % (10.5-14.5)
[2019-08-12 21:30] LABS: ANION GAP 7 mmol/L (7-16); BUN 9 mg/dL (7-18); CALCIUM 9.1 mg/dL (8.5-10.1); CHLORIDE 102 mmol/L (98-107); CO2 32 mmol/L (21-32); CREATININE 0.8 mg/dL (0.6-1.3); GLUCOSE 121 mg/dL (70-99); NT-PRO BRAIN NAT PEPTIDE 519 pg/mL (<300); POTASSIUM 4.3 mmol/L (3.5-5.1); SODIUM 141 mmol/L (136-145); TROPONIN-I LEVEL <0.06 ng/mL (<0.06)
--- NOTE | 2019-08-12 23:14 | NUR ---
ASSUMED CARE OF PT AT 1900. AT ABOUT 1999, PT BECAME VERY SOA. HEART RATE WAS 140 AND 150'S. BLOOD PRESSURE WAS 227/144. RAPID RESPONSE WAS CALLED AT THAT TIME. EKG SHOWED SINUS TACH. PT WAS STARTED ON CARDIZEM. CHEST XRAY DONE. PT PLACED ON SOLUMEDROL. VENNI MASK PLACED ON PT PER DR TORRES. PTS HEART RATE AND BLOOD PRESSURE ARE NOW WIOTHING NORMAL LIMITS. PT REPORTS THAT IT IS EASIER TO BREATH NOW AND IS COMFORTABLE.
[2019-08-13 04:00] VITALS: BP 128/77
[2019-08-13 07:00] VITALS: BP 135/73
[2019-08-13 09:39] LABS: BE 2.9 mmol/L (-2 to +3); PCO2 43.9 mmHg (35.0-45.0); PO2 69.5 mmHg (75.0-100.0); pH 7.421 (7.340-7.450)
--- NOTE | 2019-08-13 09:44 | NUR ---
INITAL ASSESSMENT COMPLETED CHARTED. VSS. TRACING SA/SR ON MONITOR.PT ON VENTI MASK AT 35%. PT DNEIES PAIN. HOURLY ROUNDING IN PLACE FOR PT SAFETY. CLWR.
--- NOTE | 2019-08-13 11:06 | EKG ---
[place] [address] ELECTROCARDIOGRAM REPORT Name: WILLIAM [facility] Room: [address] ADM IN M.R.#: [id number] Admission: 08/11/19 Attend Phys: Nadir Lopez Discharge: Date of : 43 Report #: [id number] THIS REPORT FOR: //name// [facility] Test Date: 2019-08-12 Test Time: 20:31:38 Pat Name: WILLIAM LAWLER Department: Room: [address] Gender: M Dog Or Animal Sitter: RUDY : 1945 Requested By: Jesu Alfredo Order Number: [id number] Radha MD: Efren Talley Measurements Intervals Dairy Rate: 133 P: 70 CT: 139 QRS: 93 QRSD: 100 T: 40 QT: 282 QTc: 420 Interpretive Statements Sinus tachycardia Paired supraventricular premature complexes Low voltage, extremity leads poor wave progression Artifact in lead(s) I,II,III,aVR,aVL,aVF,V1 and baseline wander in lead(s) V1,V4 Compared to ECG 08/11/2019 14:58:13 Low QRS voltage now present ST (T wave) deviation now present Sinus rhythm no longer present Right-axis deviation no longer present Electronically Signed On 08-13-2019 11:06:29 PACKAGE D[employer] by Efren Talley [email or web address] <ELECTRONICALLY SIGNED> By: Efren Talley MD, [facility] 08/13/19 1106 30 30 Efren Talley MD, [facility] /EPI
[2019-08-13 11:26] VITALS: BP 118/62
[2019-08-13 11:30] VITALS: BP 118/62
--- NOTE | 2019-08-13 14:15 | NUR ---
CONTINUE TO FOLLOW. MET WITH PT. DISCUSSED DPOA AND GAVE INFO. HE STATED THAT HE HAS CONSIDERED AND HAS BEEN PLANNING TO DO. MADE AWARE NEEDS NOTARIZED. PT STATED HE ALSO HAS [employer] NURSE THAT SEES HIM AT HOME AND HAS A SHOWER BENCH AND GRAB BARS. HAS HAD FALLS IN THE PAST. USES 2 ROLLATOR WALKERS AT HOME. PT STATES HH WASN'T HELPFUL LAST TIME HE HAD IT. HIS DIL CARES FOR HER SON WHO HAS MUSCULAR DYSTROPHY AND ASSISTS PT ALSO. WILL FOLLOW FOR DC NEEDS
[2019-08-13 16:44] VITALS: BP 114/57
[2019-08-13 20:57] VITALS: BP 136/60
[2019-08-14] VITALS (8 sets, daily range): BP systolic 135–155; BP diastolic 58–84
[2019-08-14 04:47] LABS: ALBUMIN 2.6 g/dL (3.4-5.0); CALCIUM 8.6 mg/dL (8.5-10.1); MAGNESIUM 1.9 mg/dL (1.8-2.4); POTASSIUM 4.1 mmol/L (3.5-5.1); TOTAL BILIRUBIN 0.2 mg/dL (<0.1-1.0); TOTAL PROTEIN 5.8 g/dL (6.4-8.2)
[2019-08-14 05:01] LABS: HEMATOCRIT 37.1 % (42.0-52.0); HEMOGLOBIN 12.1 gm/dL (14.0-18.0); MCHC 32.6 g/dL (28.0-37.0); MPV 8.9 fl. (7.2-11.1); RBC 4.03 mil/uL (4.50-6.00); RDW-CV 13.4 % (10.5-14.5); WBC 11.1 thou/uL (4.0-11.0)
--- NOTE | 2019-08-14 05:38 | NUR ---
PT IS ABLE TO COMMUNICATE HIS NEEDS TO STAFF EFFECTIVELY. HE HAS DENIED THE NEED FOR PAIN MEDICATION UP TO THIS TIME. PT HAD PERSISTENT COUGH MIDSHIFT AND ASKED FOR MEDS; MD PAGED, MED ORDER RECEIVED, MED GIVEN; TOLERATED WELL BY PT.
--- NOTE | 2019-08-14 08:28 | NUR ---
INITAL ASSESSMENT COMPLETED CHARTED. VSS. TRACING SR ON MONITOR. PT IS SLEEPING SOUNDLY AT THIS TIME. NO NEW CONCERNS NOTED. HOURLY ROUNDING AND FALL PRECAUTIONS IN PLACE FOR PT SAFETY. CLWR.
--- NOTE | 2019-08-14 09:45 | CON ---
[address] [address] CONSULTATION Name: WILLIAM LAWLER Room: [address] IN M.R.#: [id number] Admission: 08/11/19 Attend Phys: Nadir Lopez Discharge: Date of : 43 Report #: [id number] THIS REPORT FOR: //name// CC: Quique Alfredo DATE OF SERVICE: 08/13/2019 REASON FOR CONSULTATION: Respiratory failure, chest pain. HISTORY OF PRESENT ILLNESS: This is a 73-year-old male patient with history of COPD, chronic respiratory failure. He is chronically on 3 liter oxygen at home. 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 He was a poor candidate for other treatment options. He presented to the hospital ER and admitted with a chief complaint of intermittent left-sided chest pain associated with worsening with deep breathing and cough with 3 days' duration prior to hospitalization. This is mostly in the left upper anterior portion of his chest radiating to his back. Also, it was noted overnight his oxygen need had increased at one point, he was on high amount of by nasal cannula, he had to be placed on Ventimask. During my visit, he was on 35% Ventimask. He told me he has a cough that was dry, he is not producing any sputum and he noted increased wheezes. He denied any dysphagia. He denied any headache, numbness, vomiting, change in urine or stool. He saw [facility] in [facility] [place] for his cancer treatment and received 5 radiation treatments. PAST MEDICAL HISTORY: Hypertension, CVA, seizures, COPD, chronic respiratory failure on home oxygen 2 liters, malignant lung nodule, status post radiation therapy, bronchitis. PAST SURGICAL HISTORY: Biopsy of the pulmonary nodule. ALLERGIES: No known drug allergies. FAMILY HISTORY: Reviewed with the patient, noncontributory. REVIEW OF SYSTEMS: GENERAL: He denied fever or chills or recent weight change. EYES: He denied any visual changes, blurring of vision. HEAD AND NECK: He denied any headache, hearing loss, tinnitus, sinus congestion. GASTROINTESTINAL: He denied any dysphagia or difficulty swallowing. CARDIOVASCULAR: He has some chest discomfort as mentioned above, but no palpitation. No PNDs, no orthopnea. GENITOURINARY: He denied frequency, urgency, difficulty urination, discharge. MUSCULOSKELETAL: He denied any joint pain, lower [place] [address] CONSULTATION Name: WILLIAM LAWLER LAUREN Room: [address]#: [id number] Admission: 08/11/19 Attend Phys: Nadir Lopez Discharge: Date of : 43 Report #: [id number] PSYCHIATRIC: He denied any depression. All systems reviewed with the patient and negative other than as mentioned above. CURRENT MEDICATIONS: He is on steroids 3 times a day through the IV. He received Rocephin overnight. He is on Cardizem drip. He is on budesonide. He is on lisinopril, gabapentin, Pepcid and DuoNebs. PHYSICAL EXAMINATION: VITAL SIGNS: He was on Ventimask, O2 saturation was more than 90%, pulse rate of 100, AFib, blood pressure 135/73, afebrile. GENERAL: Looks his stated age, speaks in full sentences, Ventimask in place. HEENT: Oral Cavities: Dry mucous membrane. External ear, looks normal. NECK: Full range of movement. Trachea central. No palpable lymph node in the neck. CHEST: Diminished air movement bilaterally, prolonged expiratory phase with end-expiratory wheezes, some tenderness on the ribs on the lateral aspect of his chest, although mild. HEART: S1, S2 in AFib. ABDOMEN: Soft, lax, benign, nontender. Positive bowel sounds. EXTREMITIES: Lower extremity, no edema. SKIN: No rash. NEUROLOGIC: Mood and affect anxious. No focal weakness. Cranial nerves grossly normal. LABORATORY DATA: His white blood count is 9, hemoglobin 13.9 and platelets of 163. ABGs on the , last night 7.27/65/98 and that was done on 5 liters oxygen. His creatinine is 0.8, potassium 4.3, sodium 141. His BNP is elevated. Troponin not elevated. His chest x-ray demonstrated infiltrate on the left side with possible built in pleural effusion. His CT of the chest did not show PE, showed emphysematous changes and opacity in the left lung consistent with a history of lung cancer and possible developing infiltrate in the left lung. IMPRESSION: 1. Xoese-os-ujmoxhq hypoxic and hypercapnic respiratory failure. 2. Chest pain, likely pleuritic chest pain. 3. Chronic obstructive pulmonary disease exacerbation. 4. Pulmonary infiltrate. 5. Lung cancer, status post radiation therapy. We are going to start him on antibiotic for his developing pneumonia and he will be on IV steroids and scheduled nebulization treatment. Wean his oxygen down as tolerated. ABG this morning is pending. Regarding his pain, steroids hopefully would help, could [place] [address] CONSULTATION Name: WILLIAM LAWLER Room: [address] IN [facility]#: [id number] Admission: 08/11/19 Attend Phys: Nadir Lopez Discharge: Date of : 43 Report #: [id number] or that also developing pneumonia could be a reason for his infiltrate. I would recommend gentle pain control, more time out of bed. We need to monitor his chest x-ray findings and blood gas. <ELECTRONICALLY SIGNED> By: Keri Mcqueen MD 08/14/19 0945 0935 [id number] Mcqueen MD /nt
--- NOTE | 2019-08-14 10:20 | CON ---
[address] [address] CONSULTATION Name: WILLIAM LAWLER Room: [address] IN M.R.#: [id number] Admission: 08/11/19 Attend Phys: Nadir Lopez Discharge: Date of : 43 Report #: [id number] THIS REPORT FOR: //name// CC: Quique Alfredo DATE OF SERVICE: 08/12/2019 CARDIOLOGY CONSULTATION HISTORY OF PRESENT ILLNESS: The patient is a 73-year-old single white male who I was asked to see in the hospital today after he complained of chest pain. Unfortunately, there are no old records here at [facility]. He notes that last summer, he was having some chest pain and had a CT scan of the chest that showed evidence of a lung cancer. It was not felt to be resectable. He then received 5 treatments of radiation therapy. He was last treated in April. Since that time, he continues to have some left-sided chest pain that goes into his back. It is worse if he takes a deep breath or coughs. He denied it radiating to his arms. It is not related to exertion or meals. He has had no vomiting or blood in stool. He does get short of breath when he exerts himself. He is on oxygen at home and uses a nebulizer. He denied palpitation or syncope. PAST MEDICAL HISTORY: Significant for stroke years ago. He has a history of hypertension. MEDICATIONS: At this admission consist of Celexa, Neurontin, trazodone, Cardura, [place], lisinopril, simvastatin. ALLERGIES: He has no known drug allergies. FAMILY HISTORY: Negative for heart disease. 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 He does have a history of alcohol abuse. REVIEW OF SYSTEMS: He has a history of macular edema. There is no history of liver disease, kidney disease, psychiatric illness or chronic skin condition. PHYSICAL EXAMINATION: GENERAL: Revealed an elderly male, lying in bed, appeared in no distress. VITAL SIGNS: He had a blood pressure of 130/70, pulse is 90, he is afebrile. HEENT: He was anicteric. Conjunctivae pink. Mucous membranes moist. NECK: Veins were not distended. CHEST: Clear to auscultation. CARDIOVASCULAR: Regular rate and rhythm without [place] [address] CONSULTATION Name: WILLIAM LAWLER Room: [address]#: [id number] Admission: 08/11/19 Attend Phys: Nadir Lopez Discharge: Date of : 43 Report #: [id number] ABDOMEN: Soft. EXTREMITIES: Had no edema. Dorsalis pedis pulse 1+ bilaterally. SKIN: Warm and dry. NEUROLOGIC: Nonfocal. RADIOLOGICAL DATA: His ECG shows a sinus rhythm, septal Q-waves, but no ST or T-wave change. On his workup so far, he had CT scan of the chest using a PE protocol. This showed no pulmonary embolus, emphysema, opacity in the left upper lobe. His chest x-ray also showed hyperinflated lung howell, scarring in the left superior fissure. LABORATORY WORK: Sodium is 141, creatinine 1.0. Liver function studies were normal. Troponin 0.06. BNP 263. TSH 0.9. His white blood cell count 8.3, hemoglobin 14.5. IMPRESSION AND RECOMMENDATIONS: 1. Chest pain. Suspect pleuritic. Suspect related to lung cancer and radiation therapy. Recommend no further cardiac evaluation. 2. Lung cancer. Treated with radiation therapy. 3. Chronic obstructive pulmonary disease. 4. Previous tobacco abuse. <ELECTRONICALLY SIGNED> By: Efren Tallye MD, FACC 08/14/19 1020 1446 [id number] Talley MD, FACC /nt
[2019-08-15 04:00] VITALS: BP 171/69
--- NOTE | 2019-08-15 07:38 | NUR ---
PT IS ABLE TO COMMUNICATE HIS NEEDS TO STAFF EFFECTIVELY. HE HAS DENIED THE NEED FOR PAIN MEDICATION UP TO THIS TIME. PT STILL SOA WITH EXERTION; HR WAS VERY HIGH AROUND 21:00 LAST NIGHT WHILE HE WAS UP TO USE THE COMODE. HE COULD POSSIBLE BE DISCHARGHED TODAY, BUT HE HAS SAID THAT HE DOES NOT FEEL READY TO GO HOME YET.
[2019-08-15 08:00] VITALS: BP 166/80
[2019-08-15 11:30] VITALS: BP 179/71
[2019-08-15 16:00] VITALS: BP 165/81
--- NOTE | 2019-08-15 16:25 | NUR ---
PT A/O. TELE TRACKING SR WITH PACS'/PVC'S AND ALL VSS ON 2L. DENIES CP, STATES SOA STILL NOT IMPROVED ENOUGH TO FEEL SAFE DISCHARGING BACK HOME. PT HAD COUGHING EPISODE THIS AFTERNOON AND HR WENT UP TO 160'S, RESOLVED WITH RST-MD AWARE. EMELY MENDEZ AND PLAN OF CARE. PLEASE SEE ASSESSMENT FOR ADDITIONAL INFORMATION. WILL CONT TO MONIT
[2019-08-15 20:16] VITALS: BP 153/67
[2019-08-15 23:45] VITALS: BP 147/65
[2019-08-16 03:55] VITALS: BP 169/79
--- NOTE | 2019-08-16 07:46 | NUR ---
PT IS ABLE TO COMMUNICATE HIS NEEDS TO STAFF EFFECTIVELY. CURRENT PAIN MEDICATION REGIMEN HAS BEEN ADEQUATE FOR CONTROLLING HIS PAIN UP TO THIS TIME. PT REPORTS STILL BEING SOA WHEN UP WALKING. POSSIBLE DISCHARGE TODAY OR TOMORROW.
[2019-08-16 08:30] VITALS: BP 178/79
[2019-08-16 12:50] VITALS: BP 160/68
[2019-08-16 13:16] VITALS: BP 163/67
--- NOTE | 2019-08-16 16:58 | NUR ---
I ASSUMED CARE OF THE PATIENT AT 0700. HE IS ALERT AND ORIENTED X4 AND IS UP X1 WITH SBA AND A WALKER. BED IS IN THE LOW LOCKED POSITION AND CALL LIGHT IS IN REACH. HOURLY ROUNDING IS COMPLETED AND PATIENT NEEDS ARE MET. PAIN IS MANAGED WITH PRN MEDS. HE HAD A BM TODAY. ANTIBIOTICS ARE GIVEN AND HE IS PROGRESSING TOWARDS HIS GOALS. CASE MANAGEMENT CONSULT WAS PUT IN, PATIENT IS INTERESTED IN GOING TO REHAB TO GET STRONGER. CODE STATUS WAS UPGRADED TO DNR.
[2019-08-16 18:14] VITALS: BP 116/61
[2019-08-16 19:50] VITALS: BP 152/83
[2019-08-17] VITALS: BP 148/68
--- NOTE | 2019-08-17 00:52 | NUR ---
RECEIVED REPORT AND ASSUMED CARE AT 1900. VSS. CARDIAC MONITORING IN PLACE. PT DENIES COMPLAINTS OF PAIN, ASSESSMENT COMPLETED CHARTED. PT UP WITH ASSIST WITH WALKER. ON 2L NC. BED LOCKED IN LOWEST POSITION, CALL LIGHT WITHIN REACH, BED ALARM ON.
[2019-08-17 04:00] VITALS: BP 153/81
[2019-08-17 08:00] VITALS: BP 154/73
[2019-08-17 11:54] VITALS: BP 111/69
--- NOTE | 2019-08-17 13:09 | NUR ---
Pt stating that he wants to go to [facility] prior to returning home. Pt wants to go to [facility], faxed referral and requested that [facility] initiate auth if they are able to accept Pt clinically. Awaiting decision and auth. Following.
[2019-08-17 16:15] VITALS: BP 128/69
--- NOTE | 2019-08-17 18:55 | NUR ---
assumed pt care report received from nurse. pt is aox4, sa on cardiac rn. on 2 l nc. 02 saturation 94% iv abx given. call light at reach. no complaint. pt out of bed to chair at meal time.
[2019-08-17 20:00] VITALS: BP 172/74
--- NOTE | 2019-08-17 20:00 | NUR ---
RECEIVED REPORT AND ASSUMED CARE OF PT, ASSESSMENT COMPLETED. O2 ON AT 2L/NC, HOB ELEVATED. HAVING OCC NON-PRODUCTIVE COUGH. TELEMETRY ON SHOWING SR WITH PAC. NO COMPLAINTS VOICED. WILL CONT TO MONITOR AND ASSIST NEEDED.
[2019-08-18] VITALS (8 sets, daily range): BP systolic 97–164; BP diastolic 46–77
--- NOTE | 2019-08-18 06:16 | NUR ---
SLEPT WELL TONIGHT. C/O PAIN TO KAREN FEET DUE TO NEUROPATHY, PAIN MEDS AFFECTIVE. NO CHANGE IN ASSESSMENT. TELEMETRY CONT TO SHOW SR WITH PAC. HS GOALS OF REST AND SAFETY ACHIEVED. HOURLY ROUNDING OBSERVED.
--- NOTE | 2019-08-18 11:28 | NUR ---
CONTINUE TO FOLLOW, PT HAS ORDERS TO DC TO SNF. CALL TO [facility], THEY ARE AWAITING AUTH AND WILL NOT HAVE A BED UNTIL SAT. DR LEUNG AND NURSE UPDATED
--- NOTE | 2019-08-18 12:43 | NUR ---
assumed pt care report received from nurse. pt is aox4, on 2 l nc. sa on bus monitor. no complaint. iv abx given. pending bed approval from snf. pt in room call light at reach. will continue to monitor
--- NOTE | 2019-08-18 13:22 | NUR ---
Nutrition: Wt up some since admit, 161#. Heart Healthy diet. H/o lung cancer, COPD. Admitted with chest pain. Last albumin was 2.6, prealb 18.5. Seen for LOS. Pt ready to go to Rehab. Low risk.
[2019-08-19] VITALS: BP 161/72
[2019-08-19 04:00] VITALS: BP 137/68
--- NOTE | 2019-08-19 06:30 | NUR ---
PATIENT PROGRESSING TOWARDS GOALS: VSS ON 2L O2 NC. PATIENT HAS SLEPT PRETTY CONSISTENTLY THROUGHOUT SHIFT. PENDING DISCHARGE TO SNF TODAY. CALL LIGHT WITHIN REACH
[2019-08-19 08:00] VITALS: BP 170/64
--- NOTE | 2019-08-19 11:13 | NUR ---
SPOKE WITH [facility], INSURANCE AUTH FOR SNF STILL PENDING. SHE WILL CONTACT CM ONCE OBTAINED
[2019-08-19 12:04] VITALS: BP 127/68
[2019-08-19] MEDS ORDERED: VITAMIN D1000 UNI2 PO (14:55)
[2019-08-19 15:52] VITALS: BP 116/62
--- NOTE | 2019-08-19 18:46 | NUR ---
ASSUMED PT CARE AT 0730. ASSESSMENT COMPLETED CAHJUSTIN. ABLE TO MAKE NEEDS KNOWN. UP WITH SBA, C/O NEUROPATHY IN FEET. RESTING IN BED AT THIS TIME. USES URINAL THEN IS UP TO BSC FOR BM. PT ACCEPTED TO [facility] FOR TOMORROW, PT HAPPY. WILL CONTINUE TO MONITOR.
[2019-08-19 20:00] VITALS: BP 156/67
[2019-08-20] VITALS (7 sets, daily range): BP systolic 110–155; BP diastolic 61–76
--- NOTE | 2019-08-20 06:42 | NUR ---
PT A+O X 4. PRN PAIN COUGH MEDICINE EFFECTIVE @ BEDTIME. PT RESTED THROUGH MOST OF THE NIGHT. SR WITH PACS ON MONITOR. NO RESP DISTRESS NOTED OR OBSERVED. CALL LIGHT IN REACH. HOURLY ROUNDING FOR SAFETY.
[2019-08-20] MEDS ORDERED: TESSALON PERLE100 MG PO (12:34)
[2019-08-20] MEDS ORDERED: MEDROL DOSPAK21 TA1 PO (12:34)
[2019-08-20] MEDS ORDERED: GUAIFENESIN DM S5 ML PO (12:34)
--- NOTE | 2019-08-20 14:27 | NUR ---
cm spoke w/sasha w/V, Sasha will set up transportation w/ w/c and O2 for 330-400 today. pt b2b outside sales representative - Joan Mcmanus notified. Joan stated she will try to make it to [facility] before pt transfer. Joan very apologetic for pt's "behaviors." pt nurse notifed and in agreement. pt nurse provided number to call report [phone]. cm faxed orders and med list to [facility].
--- NOTE | 2019-08-20 15:38 | NUR ---
ASSUMED PT CARE REPORT RECEIVED FROM NURSE PT IS OAX4. ON 2 L NC. O2 SAT 94%. VSS. MEDICINE GIVEN. DISCHARGE ORDERED. TELECOMMUNICATIONS NETWORK PLANNER PENDING. WILL CONTINUE TO MONITOR. BOOM CRANE OPERATOR RETRIEVED. IV LINE OUT
--- NOTE | 2019-08-20 17:03 | NUR ---
pt left floor at 1630 with transporter. report called and given to Edith from [facility]
== END 2019-08-20 16:30 | DRG 177 ==
LOC: M.ERS 14:50 → M.TBA-ER 16:28 → M.2W 16:28
PROVIDERS: Family Medicine; Internal Medicine; ADMIT Internal Medicine
DX: J15.6 Pneumonia due to other Gram-negative bacteria (principal); J96.21 Acute and chronic respiratory failure with hypoxia; J96.22 Acute and chronic respiratory failure with hypercapnia; J44.1 Chronic obstructive pulmonary disease with (acute) exacerbation; E44.0 Moderate protein-calorie malnutrition; C34.90 Malignant neoplasm of unspecified part of unspecified bronchus or lung; J44.0 Chronic obstructive pulmonary disease with (acute) lower respiratory infection; G89.3 Neoplasm related pain (acute) (chronic); R07.81 Pleurodynia; G62.9 Polyneuropathy, unspecified; I10 Essential (primary) hypertension; R07.89 Other chest pain; E78.5 Hyperlipidemia, unspecified; R00.0 Tachycardia, unspecified; D72.829 Elevated white blood cell count, unspecified; T38.0X5A Adverse effect of glucocorticoids and synthetic analogues, initial encounter; Y92.89 Other specified places as the place of occurrence of the external cause; Z86.73 Personal history of transient ischemic attack (TIA), and cerebral infarction without residual deficits; Z87.891 Personal history of nicotine dependence; Z79.899 Other long term (current) drug therapy